=== PATIENT | female | born 1975 | race Caucasian/White ===

== ENCOUNTER 2017-03-09 19:47 | Emergency (ER) | payer OTHER | END 2017-03-09 21:00 | disposition home or self-care (01) | LOC: ER 19:47 | DX: N39.0 Urinary tract infection, site not specified (principal); F17.210 Nicotine dependence, cigarettes, uncomplicated; Z90.710 Acquired absence of both cervix and uterus ==

== ENCOUNTER 2017-03-24 22:15 | Emergency (ER) | payer OTHER | END 2017-03-25 03:46 | disposition home or self-care (01) | LOC: ER 22:15 | DX: J20.9 Acute bronchitis, unspecified (principal); F17.210 Nicotine dependence, cigarettes, uncomplicated; Z90.710 Acquired absence of both cervix and uterus; Z79.899 Other long term (current) drug therapy ==